=== PATIENT | female | born 1995 | race Caucasian/White ===

== ENCOUNTER 2021-03-04 12:06 | Emergency (ER) | payer OTHER ==
[~2021-03-04 12:06] MED LIST: AMOXICILLIN500 MG PO; DOXYLAMINE-PYR1 EACH PO; ONDANSETRON ODT4 MG PO/SL; PHENERGAN12.5 M1 PO; PHENERGAN25 M1 PO; PROMETHEGA12.5 MG/SU PR; ZOFRAN8 MG PO
== END 2021-03-04 14:40 | disposition home or self-care (01) ==
LOC: FER 12:06
DX: S66.911A Strain of unspecified muscle, fascia and tendon at wrist and hand level, right hand, initial encounter (principal); W51.XXXA Accidental striking against or bumped into by another person, initial encounter; Y92.009 Unspecified place in unspecified non-institutional (private) residence as the place of occurrence of the external cause
CPT/HCPCS: 73110; 73130

== ENCOUNTER 2021-07-31 13:10 | Emergency (ER) | payer OTHER ==
[2021-07-31 15:58] LABS: EOSINOPHIL 3.9 % (0-5); HCT 41.6 % (37.0-47.0); LYMPHOCYTE 36.7 % (15-48); MCH 29.9 pg (25.0-31.0); MCHC 33.7 g/dL (32.0-36.0); MCV 88.9 fL (78.0-100.0); MONOCYTE 9.4 % (0-12); MPV 9.8 fL (6.0-9.5); NEUTROPHIL 47.9 % (41-80); NRBC 0; PLT 314 K/uL (150-400); RBC 4.68 M/uL (4.20-5.40); RDW 12.3 % (11.5-14.0); WBC 9.1 K/uL (4.0-10.5)
[2021-07-31 16:22] LABS: BUN/CREAT RATIO (CALC) 12.2 RATIO; CREATININE 0.74 mg/dL (0.51-0.95); POTASSIUM 3.6 mmol/L (3.5-5.1)
[2021-07-31 18:21] LABS: BILIRUBIN NEGATIVE (NEGATIVE); BLOOD NEGATIVE Ery/uL (NEGATIVE); CLARITY CLEAR (CLEAR); COLOR YELLOW (YELLOW); GLUCOSE (U) NORMAL (NORMAL); LEUKOCYTES NEGATIVE Leu/uL (NEGATIVE); NITRITE NEGATIVE (NEGATIVE); PROTEIN NEGATIVE (NEGATIVE); UROBILINOGEN 0.2 mg/dL (0.2-1.0); pH 8.5 (5.0-9.0)
[2021-07-31] MEDS ORDERED: AMOXICILLIN875 MG PO (18:27)
[2021-07-31] MEDS ORDERED: MUCINEX D TABL1 EACH PO (18:27)
== END 2021-07-31 18:58 | disposition home or self-care (01) ==
LOC: FER 13:10
PROVIDERS: Nurse Practitioner Family
DX: J01.90 Acute sinusitis, unspecified (principal); B96.89 Other specified bacterial agents as the cause of diseases classified elsewhere; Z20.822 Contact with and (suspected) exposure to COVID-19
CPT/HCPCS: 36415; 71045; 80048; 81003; 84484; 85025; 93005; J7030; U0002

== ENCOUNTER 2021-11-22 09:12 | Emergency (ER) | payer OTHER ==
[~2021-11-22 09:12] MED LIST changes: +AMOXICILLIN875 MG PO; +MUCINEX D TABL1 EACH PO
[2021-11-22] MEDS ORDERED: KEFLEX250 MG PO (10:10)
== END 2021-11-22 10:33 | disposition home or self-care (01) ==
LOC: FER 09:12
DX: T16.1XXA Foreign body in right ear, initial encounter (principal)

== ENCOUNTER 2022-04-08 09:46 | Emergency (ER) | payer OTHER ==
[~2022-04-08 09:46] MED LIST changes: +KEFLEX250 MG PO
[2022-04-08 10:16] LABS: BASOPHIL 0.5 % (0-2); EOSINOPHIL 0.9 & (0-5); HGB 14.4 g/dl (12.5-16.0); LYMPHOCYTE 22.8 % (15-48); MCH 29.9 pg (25.0-31.0); MCHC 34.3 g/dL (32.0-36.0); MCV 87.1 fL (78.0-100.0); MONOCYTE 8.5 % (0-12); MPV 9.7 fL (6.0-9.5); NEUTROPHIL 67.1 % (41-80); PLT 296 K/uL (150-400); RBC 4.82 M/uL (4.20-5.40); RDW 12.5 % (11.5-14.0); WBC 9.81 K/uL (4.0-10.5)
[2022-04-08 10:35] LABS: BUN/CREAT RATIO (CALC) 12.5 RATIO; CREATININE 0.72 mg/dL (0.51-0.95); POTASSIUM 3.8 mmol/L (3.5-5.1)
[2022-04-08] MEDS ORDERED: RIZATRIPTAN10 M1 PO (12:28)
[2022-04-08] MEDS ORDERED: NAPROXEN500 MG PO (12:28)
[2022-04-08] MEDS ORDERED: REGLAN10 MG PO (12:28)
[2022-04-08] MEDS ORDERED: FIORICET1 EACH PO (12:29)
== END 2022-04-08 12:53 | disposition home or self-care (01) ==
LOC: FER 09:46
PROVIDERS: Internal Medicine
DX: R51.9 Headache, unspecified (principal); R11.0 Nausea; F17.210 Nicotine dependence, cigarettes, uncomplicated
CPT/HCPCS: 36415; 70450; 80048; 85025; 96372; J1100; J1885; J2765; J3030; J3475; J7030